=== PATIENT | female | born 1980 | race Caucasian/White ===

== ENCOUNTER 2022-02-21 00:43 | Emergency (ER) | payer OTHER ==
[2022-02-21 01:17] LABS: BASOPHIL 1.2 % (0-2); EOSINOPHIL 2.5 % (0-5); HCT 37.7 % (37.0-47.0); HGB 12.3 g/dl (12.5-16.0); LYMPHOCYTE 28.4 % (15-48); MCH 29.6 pg (25.0-31.0); MCHC 32.6 g/dL (32.0-36.0); MCV 90.6 fL (78.0-100.0); MONOCYTE 5.5 % (0-12); MPV 11.1 fL (6.0-9.5); NEUTROPHIL 62.1 % (41-80); NRBC 0; PLT 172 K/uL (150-400); RBC 4.16 M/uL (4.20-5.40); RDW 13.2 % (11.5-14.0); WBC 6.9 K/uL (4.0-10.5)
[2022-02-21 01:39] LABS: ALBUMIN 4.6 g/dL (3.4-5.0); BUN/CREAT RATIO (CALC) 14.1 RATIO; CREATININE 0.99 mg/dL (0.51-0.95); GLOBULIN (CALCULATION) 3.1 g/dL; POTASSIUM 3.9 mmol/L (3.5-5.1); TOTAL PROTEIN 7.7 g/dL (6.4-8.2)
[2022-02-21] MEDS ORDERED: PERCOCET 5-3251 EACH PO (02:48)
[2022-02-21] MEDS ORDERED: FLOMAX0.4 MG PO (02:48)
[2022-02-21] MEDS ORDERED: ONDANSETRON ODT4 MG PO (02:48)
[2022-02-21] MEDS ORDERED: PHENERGAN25 M1 PO (02:48)
[2022-02-21 02:50] LABS: BILIRUBIN NEGATIVE (NEGATIVE); BLOOD 3+ Ery/uL (NEGATIVE); CLARITY CLEAR (CLEAR); COLOR YELLOW (YELLOW); GLUCOSE (U) NORMAL (NORMAL); LEUKOCYTES NEGATIVE Leu/uL (NEGATIVE); NITRITE NEGATIVE (NEGATIVE); PROTEIN TRACE (LOW) mg/dL (NEGATIVE); SPECIFIC GRAVITY >=1.030 (1.001-1.030); UROBILINOGEN 0.2 mg/dL (0.2-1.0)
[2022-02-21 02:56] LABS: URINARY RBC TNTC
[2022-02-21 02:57] LABS: BACTERIA 1+
== END 2022-02-21 03:35 | disposition home or self-care (01) ==
LOC: FER 00:43
PROVIDERS: Internal Medicine
DX: N13.2 Hydronephrosis with renal and ureteral calculous obstruction (principal)
CPT/HCPCS: 36415; 80053; 81001; 83690; 85025; J1170; J1885; J2405; J2550; J7030

== ENCOUNTER → 2022-03-01 | Day surgery (SDC) | payer OTHER ==
[~2022-03-01] VITALS: Ht 182.9 cm; Wt 72.6 kg
[~2022-03-01] MED LIST: B COMPLEX1 EACH PO; FLOMAX0.4 MG PO; MAG-OXIDE 400M400 MG PO; MELATONIN5 M2 PO; NORCO 5-325 TA1 EACH PO; ONDANSETRON ODT4 MG PO; ONDANSETRON ODT8 MG PO; PERCOCET 5-3251 EACH PO; PHENERGAN25 M1 PO; VITAMIN D3125 MC1 PO
[2022-03-01 11:01] LABS: HCG (URINE) SCREEN NEGATIVE (NEGATIVE)
[2022-03-01 11:18] LABS: HCT 35.1 % (37.0-47.0); HGB 11.7 g/dl (12.5-16.0); MCHC 33.3 g/dL (32.0-36.0); MPV 11.7 fL (6.0-9.5); RBC 3.9 M/uL (4.20-5.40); RDW 13.1 % (11.5-14.0); WBC 4.4 K/uL (4.0-10.5)
[2022-03-01 11:30] LABS: ALBUMIN 4.2 g/dL (3.4-5.0); BILIRUBIN - TOTAL 1.5 mg/dL (0.2-1.0); BUN/CREAT RATIO (CALC) 16.9 RATIO; CREATININE 0.89 mg/dL (0.51-0.95); GLOBULIN (CALCULATION) 3.1 g/dL; TOTAL PROTEIN 7.3 g/dL (6.4-8.2)
== END | disposition home or self-care (01) ==
LOC: FAS 10:30
PROVIDERS: Surgery
DX: K81.2 Acute cholecystitis with chronic cholecystitis (principal)
CPT/HCPCS: 36415; 74300; 80053; 84703; C1758; J1100; J1170; J1885; J2250; J2405; J2704; J3010; J7120; Q9967